=== PATIENT | female | born 1995 | race Hispanic/Latino ===

== ENCOUNTER 2023-01-01 06:58 | Inpatient (IN) | payer OTHER ==
[2023-01-01] MEDS ORDERED: Ondansetron PF 4 MG/2 ML Vial IVP PRN ×4 (07:32→11:32)
[2023-01-01] MEDS ORDERED: Bicitra 30 ML UDCUP PO PRN ×2 (07:32→07:35)
[2023-01-01] MEDS ORDERED: hydrALAZINE 20 MG/ML VIAL SLOW IVP PRN ×3 (07:32→11:32)
[2023-01-01] MEDS ORDERED: Famotidine/PF 20 mg/2ml Vial SLOW IVP PRN ×2 (07:32→07:35)
[2023-01-01] MEDS ORDERED: Promethazine HCl 25 MG/ML VIAL IM PRN ×3 (07:32→08:56)
[2023-01-01] MEDS ORDERED: Carboprost 250 MCG/ML AMP IM PRN ×2 (07:34→07:35)
[2023-01-01] MEDS ORDERED: Methylergonovine 0.2 MG/ML VIAL IM PRN ×2 (07:34→07:35)
[2023-01-01] MEDS ORDERED: Tranexamic Acid 1,000 MG/10 ML VIAL IVP PRN ×2 (07:34→07:35)
[2023-01-01] MEDS ORDERED: Diphenoxylate HCl/Atropine Tablet PO PRN ×2 (07:34→07:35)
[2023-01-01] MEDS ORDERED: Misoprostol 200 MCG TAB PR PRN ×2 (07:34→07:35)
[2023-01-01] MEDS ORDERED: Docusate 100 MG CAP PO PRN (07:35)
[2023-01-01] MEDS ORDERED: NS w/ Oxytocin 30 units 500 ML IV SCH ×2 (07:45)
[2023-01-01] MEDS ORDERED: Lactated Ringer's 1,000 ML IV SCH (07:45)
[2023-01-01] MEDS ORDERED: CEFAZOLIN 2 GM in Sodium Chloride 0.9% 100 ML IVPB SCH (07:45)
[2023-01-01 08:22] LABS: Mean Corpuscular HGB CONC 33.8 g/dL (32.0-36.0); Mean Corpuscular Hemoglobin 32.1 pg (27.0-33.0); Mean Corpuscular Volume 95.1 fl (81.6-98.3); Mean Platelet Volume 11.1 fl (7.4-10.4); Platelet Count 216 10x3/uL (150-450); RBC Distribution Width 13.8 % (11.5-14.5); Red Blood Cell (RBC) Count 4.05 10x6/uL (3.90-5.03); White Blood Cell (WBC) Count 10.7 10x3/uL (3.5-10.5)
[2023-01-01 08:55] LABS: HBSAg Index 0.18 S/CO (0-0.99); Hep B Surf Ag - L&D Non-Reactive S/CO (NonReactive)
[2023-01-01] MEDS ORDERED: Ondansetron HCl/PF 4 MG/2 ML Vial IVP PRN (08:56)
[2023-01-01] MEDS ORDERED: Naloxone HCl 0.4 mg/ml Vial IVP PRN ×2 (08:56)
[2023-01-01] MEDS ORDERED: Promethazine HCl 25 MG SUPP PR PRN (08:56)
[2023-01-01] MEDS ORDERED: Naloxone HCl 0.4 mg/ml Vial IV PRN (08:56)
[2023-01-01] MEDS ORDERED: Moisturizing Cream (Eucerin) 113 GM JAR TOP PRN (08:56)
[2023-01-01] MEDS ORDERED: Fentanyl 100 MCG/2 ML VIAL SLOW IVP PRN (08:56)
[2023-01-01] MEDS ORDERED: Meperidine HCl/PF 25 MG/ML VIAL SLOW IVP PRN (08:56)
[2023-01-01] MEDS ORDERED: diphenhydrAMINE 50 MG/ML VIAL IVP PRN (08:56)
[2023-01-01] MEDS ORDERED: Communication Order-Pharmacy FS SCH (09:00)
[2023-01-01 09:04] LABS: Syphilis Antibody Nonreactive (Nonreactive); Syphilis Antibody Index 0.05 S/CO (<1.00 Non-Reactive)
[2023-01-01] MEDS ORDERED: Ketorolac Tromethamine 30 MG/ML VIAL ONE (09:11)
[2023-01-01] MEDS ORDERED: PHENYLEPHRINE-NS 100 MCG/ML 10 ML SYRINGE ONE (09:11)
[2023-01-01] MEDS ORDERED: Oxytocin 10 UNITS/ML VIAL ONE (09:11)
[2023-01-01] MEDS ORDERED: Morphine PF 10 MG/10 ML VIAL ONE (09:11)
[2023-01-01] MEDS ORDERED: ePHEDrine Sulfate 50 MG/10 ML VIAL ONE (09:11)
[2023-01-01] MEDS ORDERED: Ondansetron PF 4 MG/2 ML Vial ONE (09:11)
[2023-01-01] MEDS ORDERED: Phenylephrine 40 MG/NS 250 ML 250 ML ONE (09:11)
[2023-01-01 09:27] VITALS: BMI 36.5
[2023-01-01] MEDS ORDERED: CEFAZOLIN 2 GM VIAL ONE (09:27)
[2023-01-01] MEDS ORDERED: Famotidine/PF 20 mg/2ml Vial ONE (09:27)
[2023-01-01] MEDS ORDERED: fentaNYL 50 mcg/mL 1 mL Vial ONE ×2 (10:38→10:58)
[2023-01-01] MEDS ORDERED: Boostrix 0.5 ML (Tdap) VIAL (>/=7 yrs of age) IM ONE (11:32)
[2023-01-01] MEDS ORDERED: Acetaminophen 325 MG TAB PO PRN (11:32)
[2023-01-01] MEDS ORDERED: Lanolin Ointment 7 GM TUBE TOP PRN (11:32)
[2023-01-01] MEDS ORDERED: diphenhydrAMINE 25 MG CAP PO PRN (11:32)
[2023-01-01 11:59] LABS: RapidComm Collect By OR NURSE; pH (Cord, venous) 7.386 (7.250-7.350)
[2023-01-01 12:06] LABS: RapidComm Collect By OR NURSE
[2023-01-01] MEDS ORDERED: fentaNYL 50 mcg/mL 1 mL Vial SLOW IVP SCH (14:15)
[2023-01-01] MEDS ORDERED: Acetaminophen 325 MG TAB PO SCH (15:15)
[2023-01-01] MEDS: Ketorolac Tromethamine 30 MG/ML VIAL IVP PRN (17:32)
[2023-01-01] MEDS ORDERED: Ketorolac Tromethamine 30 MG/ML VIAL IVP SCH (18:00)
[2023-01-01] MEDS: Ferrous Sulfate 325 MG TAB PO SCH (20:35)
[2023-01-01] MEDS: Acetaminophen 325 MG TAB PO SCH (20:35)
[2023-01-02] MEDS: Acetaminophen 325 MG TAB PO SCH ×6 (01:18→21:19)
[2023-01-02 04:23] LABS: Mean Corpuscular HGB CONC 33.1 g/dL (32.0-36.0); Mean Corpuscular Hemoglobin 32.2 pg (27.0-33.0); Mean Corpuscular Volume 97.1 fl (81.6-98.3); Platelet Count 184 10x3/uL (150-450); RBC Distribution Width 14.1 % (11.5-14.5); Red Blood Cell (RBC) Count 3.11 10x6/uL (3.90-5.03); White Blood Cell (WBC) Count 10.8 10x3/uL (3.5-10.5)
[2023-01-02] MEDS: Ketorolac Tromethamine 30 MG/ML VIAL IVP PRN (06:10)
[2023-01-02 07:25] LABS: RapidComm Collect By OR NURSE
[2023-01-02 07:27] LABS: RapidComm Collect By OR NURSE
[2023-01-02] MEDS: Simethicone Chewable 80 MG TAB PO PRN ×2 (08:19→18:22)
[2023-01-02] MEDS: Docusate 100 MG CAP PO SCH ×2 (08:19→21:19)
[2023-01-02] MEDS: Prenatal Vitamin 1 TAB PO SCH (08:20)
[2023-01-02] MEDS: HYDROcodone/Acetaminophen 5/325 mg Tablet PO PRN ×3 (08:22→22:37)
[2023-01-02] MEDS: Ferrous Sulfate 325 MG TAB PO SCH ×2 (11:57→21:19)
[2023-01-02 12:19] LABS: pH (Cord, venous) 7.396 (7.250-7.350)
[2023-01-02] MEDS ORDERED: Boostrix 0.5 ML (Tdap) VIAL (>/=7 yrs of age) IM ONE (12:30)
[2023-01-02] MEDS: Ibuprofen 800 MG TAB PO SCH ×2 (13:01→21:19)
[2023-01-03] MEDS: Acetaminophen 325 MG TAB PO SCH ×7 (01:00→21:40)
[2023-01-03] MEDS: Ibuprofen 800 MG TAB PO SCH ×3 (05:17→21:40)
[2023-01-03] MEDS: HYDROcodone/Acetaminophen 5/325 mg Tablet PO PRN (05:17)
[2023-01-03] MEDS ORDERED: Ferrous Sulfate 325 MG TAB PO SCH (06:00)
[2023-01-03] MEDS: Prenatal Vitamin 1 TAB PO SCH (07:48)
[2023-01-03] MEDS: Docusate 100 MG CAP PO SCH ×2 (07:48→21:40)
[2023-01-04] MEDS: Acetaminophen 325 MG TAB PO SCH ×3 (01:23→09:05)
[2023-01-04] MEDS: Ibuprofen 800 MG TAB PO SCH ×2 (05:42→13:58)
[2023-01-04 07:44] VITALS: BP 115/66; TEMP 99.2
[2023-01-04] MEDS: Docusate 100 MG CAP PO SCH (09:05)
[2023-01-04] MEDS: Prenatal Vitamin 1 TAB PO SCH (09:05)
[2023-01-04] MEDS: HYDROcodone/Acetaminophen 5/325 mg Tablet PO PRN ×2 (09:05→13:57)
== END 2023-01-04 14:46 | disposition home or self-care (01) | DRG 787 ==
LOC: CSHLD 06:58 → CSHPP 13:39
PROVIDERS: ADMIT Family Medicine; ATTEND Family Medicine
PROC: 10D00Z1 Extraction of Products of Conception, Low, Open Approach (ICD-10-PCS; principal; 2023-01-01)
PROC: 4A133R1 Monitoring of Arterial Saturation, Peripheral, Percutaneous Approach (ICD-10-PCS; 2023-01-01)
PROC: 3E033VJ Introduction of Other Hormone into Peripheral Vein, Percutaneous Approach (ICD-10-PCS; 2023-01-01)
DX: O30.033 Twin pregnancy, monochorionic/diamniotic, third trimester (principal); D62 Acute posthemorrhagic anemia; Z3A.32 32 weeks gestation of pregnancy; Z37.2 Twins, both liveborn
CPT/HCPCS: 36415; 51702; 82805; 85027; 86780; 86850; 86900; 86901; 87340; 88307; 90715; J1885; J2274; J2405; J2550; J2590; J3010; J7120; S0028